=== PATIENT | female | born 1980 | race Caucasian/White ===

== ENCOUNTER 2019-06-21 19:02 | Observation (INO) | payer OTHER ==
[~2019-06-21] VITALS: Ht 167.6 cm; Wt 111.1 kg
--- OUTSIDE RECORDS SUMMARY | 2019-06-21 19:03 | XMS REPORT | Clinical Summary ---
Author Author Rojas [facility] Organization [facility] Address Unknown Phone Unavailable Care Team Providers Care Registered Public Surveyor Name Role Phone Carmen Nascimento MD PCP Allergies Not on File Medications Not on file Active Problems Not on file Social History Date Tobacco Use Types Packs/Day Years Used Never Assessed Sex Assigned at Date Recorded Not on file Industry Job Start Date Occupation Not on file Not on file Not on file Travel End Travel History Travel Start No recent travel history available. Last Filed Vital Signs Not on file Plan of Treatment Health Maintenance Due Date Last Done Comments CERVICAL CANCER SCREENING 2002 INFLUENZA VACCINE 05/27/2019 08/30/2015 Results Not on fileafter 06/20/2018 Insurance Type Payer Benefit Subscriber ID Effective Phone Address Plan / Dates Group HMO/PPO [facility] xxxxxxxxx 2016-P THCARE resent CHOICE/CHO ICE +
--- OUTSIDE RECORDS SUMMARY | 2019-06-21 19:03 | XMS REPORT | Summary of Care ---
Author Author Shlomo De Anda M.A. Organization Unknown Address [facility] Phone Unavailable Care Team Providers Care Lpc Name Role Phone VIBHA Bell, LANDON Unavailable Unavailable Shlomo De Anda M.A. Unavailable Unavailable BRY Bell, MARY Unavailable Unavailable JOSE Land, JOSE JUAN Unavailable Unavailable ROYCE Bell, SON Unavailable Unavailable VIDAL Bell, VERITO Unavailable Unavailable VIBHA SUTTON SD, LANDON Narvaez Unavailable Unavailable Unavailable Unavailable Functional Status Name Dates Details Functional status health issues are not documented Status: Name Dates Details Cognitive status health issues are not documented Status: Problems Name Dates Details Psoriasis (696.1, L40.9) Status: Active Hypoglycemia (251.2, E16.2) Status: Active Abnormal blood chemistry (790.6, R79.9) Status: Active Sciatica of left side (724.3, M54.32) Status: Active Left hip pain (719.45, M25.552) Status: Active FPC use of drug (V58.69, Z79.899) Status: Active Acute recurrent sinusitis (461.9, J01.91) Status: Active Menorrhagia with irregular cycle (626.2, N92.1) Status: Active Left lower quadrant abdominal tenderness (789.64, R10.814) Status: Active Back pain (724.5, M54.9) Status: Active Rhinitis (472.0, J31.0) Status: Active Muscle spasm (728.85, M62.838) Status: Active Stress headaches (307.81, F45.41) Status: Active Obesity (278.00, E66.9) Status: Active Malaise and fatigue (780.79, R53.81) Status: Active Fever (780.60, R50.9) Status: Active Influenza (487.1, J11.1) Status: Active Headache (784.0, R51) Status: Active Allergic rhinitis, seasonal (477.9, J30.2) Status: Active Acute non-recurrent sinusitis of other sinus (461.8, J01.80) Status: Active Migraine, unspecified, not intractable, without status migrainosus (346.90, G43.909) Status: Active Headache, tension-type (339.10, G44.209) Status: Active Medications Name Dates Details Clobetasol Propionate 0.05 % External Liquid APPLY AND RUB IN A THIN FILM TO AFFECTED AREAS TWICE DAILY.(AM AND PM). Quantity: 1 LANDON DUNNE M.D. * Start : 29-Sep-2015 Active 125 ML Bottle Meloxicam 7.5 MG Oral Tablet TAKE ONE TABLET ONCE A DAY NEEDED FOR PAIN * Quantity: 30 Refills: 3 MARY LONDONO M.D. * Start : 29-May-2017 Active Fluticasone Propionate 50 MCG/ACT Nasal Suspension USE 1 TO 2 SPRAYS IN EACH NOSTRIL ONCE DAILY. * Quantity: 1 Refills: 0 VERITO DRAKE M.D. * Start : 21-Aug-2017 Active 9.9 ML Bottle Iron TABS * Refills: 0 Active One-A-Day Womens TABS * Refills: 0 Active Amoxicillin-Pot Clavulanate 500-125 MG Oral Tablet TAKE 1 TABLET EVERY 12 HOURS DAILY. * Quantity: 20 Refills: 0 JOSE JUAN GARCIA N.P. * Start : 29-Dec-2017 Active Levocetirizine Dihydrochloride 5 MG Oral Tablet TAKE 1 TABLET DAILY NEEDED FOR FOR SINUS ALLERGIES, SNEEZING & DRAINAGE * Quantity: 30 Refills: 0 JOSE JUAN GARCIA N.P. * Start : 29-Dec-2017 End : 28-Jan-2018 Active Topiramate 25 MG Oral Tablet Take one tablet daily * Quantity: 30 Refills: 1 SON CRANE M.D. * Start : 31-Dec-2017 Active Nortriptyline HCl - 10 MG Oral Capsule take one at bedtime * Quantity: 30 Refills: 1 SON CRANE M.D. * Start : 31-Dec-2017 Active Wyxmisbdsb-FOQB-Hyuevrhe 50-325-40 MG Oral Capsule Take one tablet up to evvery 4 hours as needed for headache * Quantity: 20 Refills: 0 SON CRANE M.D. * Start : 31-Dec-2017 Active Allergies and Adverse Reactions Name Dates Details No Known Drug Allergies (Allergy) Status: Active Past Medical History Name Dates Details History of iron deficiency anemia (V12.3, Z86.2) Status: Resolved History of Morbid obesity (278.01, E66.01) Status: Resolved History of polycystic ovarian syndrome (V13.29, Z87.42) Status: Resolved Procedures Procedure Dates Details History of Gastric Surgery For Morbid Obesity Laparoscopic Longitudinal Gastrectomy Completed History of Cholecystectomy Completed History of Appendectomy Completed Immunization Name Dates Details Fluzone Quadrivalent 0.5 ML Intramuscular Suspension Lot #: [id number] on: 30-Aug-2015 Family History Name Dates Details Family history of hypertension (V17.49, Z82.49) Status: Active Family history of diabetes mellitus (V18.0, Z83.3) Status: Active Name Dates Details Family history of diabetes mellitus (V18.0, Z83.3) Status: Active Name Dates Details Family history of hyperthyroidism (V18.19, Z83.49) Status: Active Name Dates Details Family history of colonic polyps (V18.51, Z83.71) Status: Active Family history of hyperlipidemia (V18.19, Z83.49) Status: Active Family history of sleep apnea (V19.8, Z82.0) Status: Active Family history of hypertension (V17.49, Z82.49) Status: Active Family history of hypothyroidism (V18.19, Z83.49) Status: Active Social History Name Dates Details - Status: Name Dates Details Former smoker Vital Signs Date Test Result Details 31-Dec-20178:43 BP Systolic 116 mm[Hg] Status: Comments: Location: LUE; Position: Sitting BP Diastolic 82 mm[Hg] Status: Comments: Location: LUE; Position: Sitting Weight 235 lb Status: Body Mass Index Calculated 37.93 kg/m2 Status: Body Surface Area Calculated 2.14 m2 Status: Height 66 in Status: Temperature 97.9 f Status: Comments: Method: Temporal Respiration Rate 16 /min Status: Heart Rate 60 /min Status: 4-Gei-599754:04 BP Systolic 119 mm[Hg] Status: Comments: Location: LUE; Position: Sitting BP Diastolic 78 mm[Hg] Status: Comments: Location: LUE; Position: Sitting Weight 237.5 lb Status: Body Mass Index Calculated 38.33 kg/m2 Status: Body Surface Area Calculated 2.15 m2 Status: Height 66 in Status: Temperature 98 f Status: Comments: Method: Temporal Respiration Rate 16 /min Status: Heart Rate 62 /min Status: Comments: Location: Brachial Artery; 12-Axg-091988:10 BP Systolic 110 mm[Hg] Status: Comments: Location: LUE; Position: Sitting BP Diastolic 62 mm[Hg] Status: Comments: Location: E; Position: Sitting Weight 236.1875 lb Status: Body Mass Index Calculated 38.12 kg/m2 Status: Body Surface Area Calculated 2.15 m2 Status: Height 66 in Status: Temperature 97.9 f Status: Comments: Method: Temporal Respiration Rate 17 /min Status: Heart Rate 67 /min Status: Results Date Description Value Details 58-Hzg-462938:53 [O] Flu Test (in Office ) Flu A Negative (Normal) Flu B Negative (Normal) Plan of Care Name Dates Details Planned Observations Planned Goals not documented Instructions Name Dates Details Instructions not documented Encounters Appointment; LANDON DUNNE M.D. Encounter Diagnosis: Problem not documented On: 10-Jul-2016 16:00 Appointment; LANDON DUNNE M.D. Encounter Diagnosis: Problem not documented On: 23-Oct-2016 9:00 Appointment; LANDON DUNNE M.D. Encounter Diagnosis: Problem not documented On: 14-Jan-2017 10:30 Appointment; LANDON DUNNE M.D. Encounter Diagnosis: Problem not documented On: 23-Apr-2017 13:00 Appointment; MARY LONDONO M.D. Encounter Diagnosis: Problem not documented On: 29-May-2017 14:15 Appointment; VERITO DRAKE M.D. Encounter Diagnosis: Problem not documented On: 21-Aug-2017 9:45 Appointment; SON CRANE M.D. Encounter Diagnosis: Problem not documented On: 04-Nov-2017 15:30 Appointment; ROSEANN DAILY M.D. Encounter Diagnosis: Problem not documented On: 16-Dec-2017 11:30 Appointment; JOSE JUAN GARCIA NP Encounter Diagnosis: Problem not documented On: 29-Dec-2017 14:00 Appointment; SON CRANE M.D. Encounter Diagnosis: Problem not documented On: 31-Dec-2017 8:30
[2019-06-21] MEDS ORDERED: ASPIRIN 81 MG CHEW TAB PO STA (19:14)
--- NOTE | 2019-06-21 20:03 | Diagnostic Imaging Report ---
EXAMINATION: CXR 2 VIEW - HOPD INDICATION: Chest pain and left arm weakness ^[id number] ^[id number] COMPARISON: None FINDINGS: PA and lateral views TUBES and LINES: None. LUNGS: Lungs are well inflated. There is no evidence of pneumonia or pulmonary edema. PLEURA: No pleural effusion or pneumothorax. HEART AND MEDIASTINUM: The cardiomediastinal silhouette is unremarkable.. BONES AND SOFT TISSUES: No focal osseous lesions. Soft tissues are unremarkable. UPPER ABDOMEN: No free air under the diaphragm. Cholecystectomy clips in the right upper quadrant. IMPRESSION: No acute thoracic abnormality. Signed by: Dr. Yayo Black MD on 06/21/2019 8:00 PM
[2019-06-21] MEDS ORDERED: ONDANSETRON HCL INJ 2MG/ML 2ML 2 MG/ML VIAL IV PRN (20:15)
[2019-06-21] MEDS ORDERED: NITROGLYCERIN 0.4 MG SUBL SL PRN (20:15)
[2019-06-21] MEDS ORDERED: ASPIRIN 81 MG CHEW TAB PO ONE (20:15)
[2019-06-21] MEDS ORDERED: SODIUM CHLORIDE FLUSH 10 ML SYR INJ PRN (20:15)
--- OUTSIDE RECORDS SUMMARY | 2019-06-21 20:29 | XMS REPORT | Clinical Summary ---
Author Author Rojas [facility] Organization [facility] Address Unknown Phone Unavailable Care Team Providers Care Permastone Installer Name Role Phone Carmen Nascimento MD PCP [...] Phone Address Plan / Dates Group HMO/PPO [facility] xxxxxxxxx 2016-P THCARE resent CHOICE/CHO ICE +
--- OUTSIDE RECORDS SUMMARY | 2019-06-21 20:29 | XMS REPORT ---
[email or web address] Address Unknown Phone Unavailable Care Team Providers Care Esl Professor Name Role Phone WAYNE ARAUZ Unavailable Unavailable Problems This patient has no known problems. Allergies, Adverse Reactions, Alerts This patient has no known allergies or adverse reactions. Medications This patient has no known medications. Results Test Description Test Time Test Comments Text Results Atomic Results Result Comments [facility] 2019-06-21 19:59:00 [place] [address] Patient Name: ANDIE REBOLLEDO MR #: [id number] : 1980 Age/Sex: 38/F Req #: [id number] Adm Physician: Ordered by: WAYNE ARAUZ MD Report #: [id number] Location: [facility] Room/Bed: Procedure: [id number] HOPD/CXR 2 VIEW - HOPD Exam Date: 06/21/19 Exam Time: 1939 REPORT STATUS: Signed EXAMINATION: CXR 2 VIEW - HOPD INDICATION: Chest pain and left arm weakness [id number] COMPARISON: None FINDINGS: PA and lateral views TUBES and LINES: None. LUNGS: Lungs are well inflated. There is no evidence of pneumonia or pulmonary edema. PLEURA: No pleural effusion or pneumothorax. HEART AND MEDIASTINUM: The cardiomediastinal silhouette is unremarkable.. BONES AND SOFT TISSUES: No focal osseous lesions. Soft tissues are unremarkable. UPPER ABDOMEN: No free air under the diaphragm. Cholecystectomy clips in the right upper quadrant. IMPRESSION: No acute thoracic abnormality. Signed by: Dr. Owen Black MD on 06/21/2019 8:00 PM Dictated By: OWEN BLACK MD 99 Transcribed By: BRIGHT on 06/21/191999 COPY TO: WAYNE ARAUZ MD
[2019-06-21 21:30] VITALS: BP 103/57
--- NOTE | 2019-06-21 21:30 | NUR ---
PATIENT IS A NEW ADMIT THAT ARRIVED STRETCHER. PATIENT IS AWAKE AND TALKING. PATIENT HAS BEEN TRANSFERRED INTO THE BED, BED IS IN LOWEST POSITION AND CALL LIGHT IS WITHIN REACH. WILL CONTINUE TO MONITOR PATIENT.
[2019-06-21 21:55] VITALS: BP 103/57
[2019-06-21] MEDS: FAMOTIDINE 20 MG TAB PO SCH (22:01)
[2019-06-21 22:55] LABS: CREATINE KINASE MB 1.4 ng/mL (0-5.0)
[2019-06-22] VITALS: BP 102/53
[2019-06-22 04:00] VITALS: BP 95/59
[2019-06-22] MEDS ORDERED: ASPIRIN EC81 MG PO (05:25)
[2019-06-22] MEDS ORDERED: FAMOTIDINE20 MG PO (05:25)
[2019-06-22 05:52] LABS: CREATINE KINASE MB 1.9 ng/mL (0-5.0)
[2019-06-22 06:17] LABS: BASOPHILS % 0.5 % (0.0-1.0); EOSINOPHILS # (AUTO) 0.2 (0.0-0.4); EOSINOPHILS % 2.7 % (0.0-6.0); HEMATOCRIT 41.8 % (34.2-44.1); HEMOGLOBIN 13.7 g/dL (12.0-16.0); LYMPHOCYTES # (AUTO) 2.9 (1.0-3.2); LYMPHOCYTES % 35.7 % (18.0-39.1); MEAN CORPUSCULAR HEMOGLOBIN 28.5 pg (28-32); MEAN CORPUSCULAR HGB CONC 32.8 g/dL (31-35); MEAN CORPUSCULAR VOLUME 86.9 fL (81-99); MONOCYTES % 12.1 % (4.4-11.3); NEUTROPHILS # (AUTO) 3.9 (2.1-6.9); NEUTROPHILS % 48.9 % (38.7-80.0); PLATELET COUNT 310 x10e3/uL (140-360); RED BLOOD COUNT 4.81 x10e6/uL (3.6-5.1); RED CELL DISTRIBUTION WIDTH 18.3 % (11.7-14.4)
[2019-06-22 06:31] LABS: ANION GAP 13.4 mmol/L (8-16); BLOOD UREA NITROGEN 10 mg/dL (7-26); BUN/CREATININE RATIO 12 (6-25); CALCIUM 9.9 mg/dL (8.4-10.2); CARBON DIOXIDE 28 mmol/L (22-29); CHLORIDE 101 mmol/L (98-107); CREATININE, SERUM 0.83 mg/dL (0.57-1.11); EST GLOMERULAR FILTRATION RATE > 60 ML/MIN (60-); GLUCOSE 87 mg/dL (74-118); POTASSIUM 4.4 mmol/L (3.5-5.1); SODIUM 138 mmol/L (136-145)
--- NOTE | 2019-06-22 06:37 | NUR ---
report given to day nurse. patient is resting comfortably in bed. bed is in lowest position and call solorzano is within reach.
[2019-06-22 06:53] LABS: FREE T4 (FREE THYROXINE) 0.87 ng/dL (0.8-1.8); THYROID STIMULATING HORMONE 1.961 uIU/mL (0.350-4.940)
[2019-06-22 06:56] LABS: B-TYPE NATRIURETIC PEPTIDE2 17.3 pg/mL (0-100)
--- NOTE | 2019-06-22 07:06 | NUR ---
pt alert resp even and unlabored this time no distress noted, pt has no c/o pain at this time, call light in reach.
[2019-06-22] MEDS ORDERED: FAMOTIDINE 20 MG TAB PO SCH (07:30)
[2019-06-22 08:10] VITALS: BP 116/71
[2019-06-22] MEDS: FAMOTIDINE 20 MG TAB PO SCH (08:32)
[2019-06-22 08:42] VITALS: BP 116/71
[2019-06-22] MEDS ORDERED: ASPIRIN 81 MG CHEW TAB PO SCH (09:00)
[2019-06-22] MEDS ORDERED: ASPIRIN 81 MG ENTERIC COATED PO SCH (09:00)
--- NOTE | 2019-06-22 09:02 | NUR ---
PT HAVING ECHO AT THIS TIME. TOLERATING WELL.
--- NOTE | 2019-06-22 10:29 | NUR ---
PT DISCHARGED HOME, PRESCRIPTIONS GIVEN , PT AND WAS EDUCATED ON HER MEDICATION AT THIS TIME. IV SITE REMOVED NO REDNESS NO BLEEDING NOR SWELLING TO SITE.
--- NOTE | 2019-06-23 21:02 | Discharge Summary ---
ADMISSION DIAGNOSES: 1. Chest pain. 2. Obesity. DISCHARGE DIAGNOSES: 1. Chest pain. 2. Obesity. 3. Rule out myocardial infarction. HISTORY: None. SURGICAL HISTORY: Cholecystectomy and appendectomy. FAMILY HISTORY: The patient's uncle had diabetes. Her aunt had cancer. Her grandpa had a stroke. SOCIAL HISTORY: Noncontributory. HOSPITAL COURSE: A 38-year-old female complains of substernal chest pain and pressure that began yesterday while sitting on the couch. The pain radiated to her left arm with associated numbness and tingling. She denied shortness of breath, dizziness, and diaphoresis. On admission, EKG showed normal sinus rhythm. Echo showed an EF of 50% to 55%. Chest x-ray was negative. Troponins were negative x3. The patient was discharged home with new prescriptions for Pepcid and aspirin. She will follow up with primary care in 1 to 2 weeks. The patient understands discharge instructions and agrees to plan. Vital signs stable. The patient is afebrile. Dictated by Maria Del Carmen Alvarez NP MD BRIANA Sanders/KEY /[id number]
== END 2019-06-22 10:23 | disposition home or self-care (01) ==
LOC: FSED 19:02 → ERHOLD 20:12 → MED/SURG 21:26
PROVIDERS: ADMIT Internal Medicine; ATTEND Internal Medicine
DX: R07.2 Precordial pain (principal); D64.9 Anemia, unspecified; E66.9 Obesity, unspecified; Z68.39 Body mass index [BMI] 39.0-39.9, adult; Z88.5 Allergy status to narcotic agent; Z83.3 Family history of diabetes mellitus; Z80.9 Family history of malignant neoplasm, unspecified; Z82.3 Family history of stroke; Z90.49 Acquired absence of other specified parts of digestive tract
CPT/HCPCS: 36415; 71046; 80048; 80061; 80076; 80307; 81025; 82550; 82553; 83036; 83735; 83880; 84439; 84443; 84484; 85025; 85379; 93005; 93306; 99284; G0378; J2405

== ENCOUNTER 2020-09-29 12:14 | Emergency (ER) | payer OTHER ==
[~2020-09-29] VITALS: Ht 167.6 cm; Wt 98.1 kg
[~2020-09-29 12:14] MED LIST: ASPIRIN EC81 MG PO; FAMOTIDINE20 MG PO
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
[2020-09-29] MEDS ORDERED: IBUPROFEN 600 MG TAB PO ONE (13:07)
--- NOTE | 2020-09-29 13:44 | Diagnostic Imaging Report ---
X-ray left wrist 3 views History: Trauma Findings: No fracture, subluxation, significant soft tissue swelling, radiopaque foreign body. Impression: As above. Signed by: Kvng Barbosa MD on 09/29/2020 1:41 PM
--- OUTSIDE RECORDS SUMMARY | 2020-09-29 13:44 | XMS REPORT | Continuity of Care Document ---
Author Author [facility] t Organization [facility] Address [address] [place] [address] Phone Unavailable Care Team Providers Care Scrap Shear Operator Name Role Phone Brice DUNNE MD PCP LANDON DUNNE M.D. Attphys Unavailable WAYNE ARAUZ Attphys Unavailable NAYELY HERNANDEZ APRN Attphys Unavailable SON CRANE M.D. Attphys Unavailable JOSE JUAN GARCIA NP Attphys Unavailable ROSEANN DAILY M.D. Attphys Unavailable VERITO DRAKE M.D. Attphys Unavailable MARY LONDONO M.D. Attphys Unavailable AD THOMAS M.D. Attphys Unavailable Payers Payer Name Policy Type Policy Number Effective Date Expiration Date S ource Problems Condition Name Condition Details Condition Category Status Onset Date Resolution Date Last Treatment Date Treating Clinician Comments Source Chest pain Chest pain Problem Active [facility] History of iron deficiency anemia History of iron deficiency ane august Problem Resolved [facility] History of Morbid obesity History of Morbid obesity Problem Resolved [facility] History of polycystic ovarian syndrome History of polycystic ovarian syndrome Problem Resolved [facility] Psoriasis Psoriasis Problem Active [facility] Hypoglycemia Hypoglycemia Problem Active [facility] Abnormal blood chemistry Abnormal blood chemistry Problem Active [facility] Sciatica of left side Sciatica of left side Problem Active [facility] Left hip pain Left hip pain Problem Active [facility] 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 Problem Active [facility] Menorrhagia with irregular cycle Menorrhagia with irregular cycl e Problem Active [facility] Left lower quadrant abdominal tenderness Left lower qu adrant abdominal tenderness Problem Active [facility] Back pain Back pain [facility] Rhinitis Rhinitis Problem Active [facility] Muscle spasm Muscle spasm Problem Active [facility] Obesity Obesity Problem Active [facility] Headache, tension-type Headache, tension-type Problem Active [facility] Persistent cough Persistent cough Problem Active [facility] Fever, unspecified fever cause Fever, unspecified fever cause Problem Active [facility] Acute bronchitis Acute bronchitis Problem Active [facility] Stress headaches Stress headaches Problem Active [facility] Anxiety and depression Anxiety and depression Problem Active [facility] Fatigue Fatigue Problem Active [facility] Allergic rhinitis, seasonal Allergic rhinitis, seasonal Problem Active [facility] Pruritus Pruritus Problem Active [facility] Migraine, unspecified, not intractable, without status migrainosus Migraine, unspecified, not intractable, without status migrainosus Problem Active [facility] Headache Headache Problem Active [facility] Panic attacks Panic attacks Problem Active [facility] Allergies, Adverse Reactions, Alerts Allergy Name Allergy Type Status Severity Reaction(s) Onset Date Inacti ve Date Treating Clinician Comments Source No Known Allergies DA Active U 2019-10-01 00:00:00 [facility] Codeine Allergy to Substance Active Moderate 2019-06-21 00:00:00 [facility] Family History Family Member Diagnosis Comments Start Date Stop Date Source Grandmother Family history of hypertension [facility] Grandmother Family history of diabetes mellitus [facility] uncle Family history of diabetes mellitus [facility] cousin Family history of hyperthyroidism [facility] Mother Family history of colonic polyps [facility] Mother Family history of hyperlipidemia [facility] Mother Family history of sleep apnea [facility] Mother Family history of hypertension [facility] Mother Family history of hypothyroidism [facility] Social History Social Habit Start Date Stop Date Quantity Comments Source Sex Assigned At [facility] Smoking Status Start Date Stop Date Source Ex-smoker (finding) [place] [facility] Medications Ordered Medication Name Filled Medication Name Start Date Stop Da te Current Medication? Ordering Clinician Indication Dosage Frequency Signature (SIG) Comments Components Source clonazePAM 0.5 MG Oral Tablet clonazePAM 0.5 MG Oral Tablet 2019 00:00:00 Yes LANDON DUNNE M.D. TAKE 1 TA BLET BY MOUTH TWICE DAILY NEEDED FOR PANIC [facility] buPROPion HCl ER (XL) 150 MG Oral Tablet Extended Rele ase 24 Hour buPROPion HCl ER (XL) 150 MG Oral Tablet Extended Release 24 Hour 2019-07-23 00:00:00 Yes LANDON DUNNE M.D. TAKE 1 TABLET BY MOUTH EVERY DAY [facility] Aspirin (Aspirin Ec) 81 Mg Tablet. Aspirin (Aspirin Ec) 81 Mg Tablet. 2019-06-22 00:00:00 Yes Maria Del Carmen Alvarez Np 81 Every M orning [facility] Famotidine 20 Mg Tab Famotidine 20 Mg Tab 2019-06-22 00:00:00 Yes Maria Del Carmen Alvarez Np 20 Daily@0600 [facility] Ketorolac Tromethamine 10 MG Oral Tablet Ketorolac Tro methamine 10 MG Oral Tablet 2019-04-30 00:00:00 Yes NAYELY HERNANDEZ APRN TAKE 1 TABLET BY MOUTH EVERY 6 HOURS FOR 3 DAYS. DO NOT EXCEED MORE THAN 5 DAYS OF CONSECUTIVE USE. [facility] Nxntnioddq-GYLD-Wspcqnml 50-325-40 MG Oral Capsule But hdgrlrq-PQTQ-Bdfgbmme 50-325-40 MG Oral Capsule 2017-12-31 00:00:00 Yes LANDON DUNNE M.D. Take one tablet up to evvery 4 hours as needed for headache [facility] Topamax 100 MG Oral Tablet Topamax 100 MG Oral Tablet 2017-12-31 00:0 0:00 Yes LANDON DUNNE M.D. qd [facility] One-A-Day Womens TABS One-A-Day Womens TABS Yes [facility] Immunizations Ordered Immunization Name Filled Immunization Name Date Status Comments Source Fluzone Quadrivalent 0.5 ML Intramuscular Suspension 2015-08-30 09:20:00 Completed [facility] ns Vital Signs Vital Name Observation Time Observation Value Comments Source Systolic blood pressure 2020-04-06 09:29:00 106 mm[Hg] Loca tion: ASHAE; Position: Sitting [facility] Diastolic blood pressure 2020-04-06 09:29:00 61 mm[Hg] Loc ation: LUE; Position: Sitting [facility] Body height 2020-04-06 09:29:00 66 [in_us] [facility] Weight 2020-04-06 09:29:00 237.375 [lb_av] [facility] Body mass index (BMI) [Ratio] 2020-04-06 09:29:00 38.31 kg/m2 [facility] Body temperature 2020-04-06 09:29:00 98.4 [degF] Method: Temporal [facility] Heart Rate 2020-04-06 09:29:00 71 /min [facility] Respiratory rate 2020-04-06 09:29:00 16 /min [facility] Systolic blood pressure 2020-03-06 12:54:00 112 mm[Hg] Loca tion: LUE; Position: Sitting [facility] Diastolic blood pressure 2020-03-06 12:54:00 77 mm[Hg] Loc ation: LUE; Position: Sitting [facility] Body height 2020-03-06 12:54:00 66 [in_us] [facility] Weight 2020-03-06 12:54:00 243.0625 [lb_av] [facility] Body mass index (BMI) [Ratio] 2020-03-06 12:54:00 39.23 kg/m2 [facility] Body temperature 2020-03-06 12:54:00 99 [degF] Method: Temporal [facility] Heart Rate 2020-03-06 12:54:00 66 /min [facility] Respiratory rate 2020-03-06 12:54:00 16 /min [facility] BP Systolic 2019-07-23 10:19:00 133 mm[Hg] Location: [place]; Positi on: Sitting [facility] BP Diastolic 2019-07-23 10:19:00 90 mm[Hg] Location: [place]; Pos[place] on: Sitting [facility] Height 2019-07-23 10:19:00 66 [in_us] [facility] Weight 2019-07-23 10:19:00 246 [lb_av] [facility] Body Mass Index Calculated 2019-07-23 10:19:00 39.71 kg/m2 [facility] Temperature 2019-07-23 10:19:00 97.2 [degF] Method: Temporal [facility] Respiration Rate 2019-07-23 10:19:00 16 /min [facility] Heart Rate 2019-07-23 10:19:00 70 /min [facility] BP Systolic 2019-06-23 14:18:00 106 mm[Hg] Location: LUE; Positi on: Sitting [facility] BP Diastolic 2019-06-23 14:18:00 66 mm[Hg] Location: LUE; Positi on: Sitting [facility] Height 2019-06-23 14:18:00 66 [in_us] [facility] Weight 2019-06-23 14:18:00 246 [lb_av] [facility] Body Mass Index Calculated 2019-06-23 14:18:00 39.71 kg/m2 [facility] Temperature 2019-06-23 14:18:00 98.3 [degF] Method: Temporal [facility] Respiration Rate 2019-06-23 14:18:00 16 /min [facility] Heart Rate 2019-06-23 14:18:00 81 /min [facility] BP Systolic 2019-04-30 15:36:00 126 mm[Hg] Location: LUE; Positi on: Sitting [facility] BP Diastolic 2019-04-30 15:36:00 66 mm[Hg] Location: LUE; Positi on: Sitting [facility] Height 2019-04-30 15:36:00 66 [in_us] [facility] Weight 2019-04-30 15:36:00 243 [lb_av] [facility] Body Mass Index Calculated 2019-04-30 15:36:00 39.22 kg/m2 [facility] Temperature 2019-04-30 15:36:00 97.2 [degF] Method: Temporal [facility] Heart Rate 2019-04-30 15:36:00 71 /min Location: L Radial; [facility] Respiration Rate 2019-04-30 15:36:00 16 /min Quality: Normal [facility] BP Systolic 2018-07-09 10:14:00 131 mm[Hg] Location: LUE; Positi on: Sitting [facility] BP Diastolic 2018-07-09 10:14:00 83 mm[Hg] Location: LUE; Positi on: Sitting [facility] Height 2018-07-09 10:14:00 66 [in_us] [facility] Weight 2018-07-09 10:14:00 247.25 [lb_av] [facility] Body Mass Index Calculated 2018-07-09 10:14:00 39.91 kg/m2 [facility] Temperature 2018-07-09 10:14:00 97.9 [degF] Method: Temporal [facility] Heart Rate 2018-07-09 10:14:00 86 /min [facility] Respiration Rate 2018-07-09 10:14:00 16 /min [facility] BP Systolic 2017-12-31 08:43:00 116 mm[Hg] Location: LUE; Positi on: Sitting [facility] BP Diastolic 2017-12-31 08:43:00 82 mm[Hg] Location: LUE; Positi on: Sitting [facility] Weight 2017-12-31 08:43:00 235 [lb_av] [facility] Body Mass Index Calculated 2017-12-31 08:43:00 37.93 kg/m2 [facility] Height 2017-12-31 08:43:00 66 [in_us] [facility] Temperature 2017-12-31 08:43:00 97.9 [degF] Method: Temporal [facility] Respiration Rate 2017-12-31 08:43:00 16 /min [facility] Heart Rate 2017-12-31 08:43:00 60 /min [facility] BP Systolic 2017-12-29 14:04:00 119 mm[Hg] Location: LUE; Positi on: Sitting [facility] BP Diastolic 2017-12-29 14:04:00 78 mm[Hg] Location: LUE; Positi on: Sitting [facility] Height 2017-12-29 14:04:00 66 [in_us] [facility] Weight 2017-12-29 14:04:00 237.5 [lb_av] [facility] Body Mass Index Calculated 2017-12-29 14:04:00 38.33 kg/m2 [facility] Temperature 2017-12-29 14:04:00 98 [degF] Method: Temporal [facility] Heart Rate 2017-12-29 14:04:00 62 /min Location: L Brachial Artery; [facility] Respiration Rate 2017-12-29 14:04:00 16 /min [facility] BP Systolic 2017-12-16 12:10:00 110 mm[Hg] Location: LUE; Positi on: Sitting [facility] BP Diastolic 2017-12-16 12:10:00 62 mm[Hg] Location: LUE; Positi on: Sitting [facility] Height 2017-12-16 12:10:00 66 [in_us] [facility] Weight 2017-12-16 12:10:00 236.1875 [lb_av] [facility] Body Mass Index Calculated 2017-12-16 12:10:00 38.12 kg/m2 [facility] Temperature 2017-12-16 12:10:00 97.9 [degF] Method: Temporal [facility] Heart Rate 2017-12-16 12:10:00 67 /min [facility] Respiration Rate 2017-12-16 12:10:00 17 /min [facility] BP Systolic 2017-11-04 15:26:00 105 mm[Hg] Location: LUE; Positi on: Sitting [facility] BP Diastolic 2017-11-04 15:26:00 59 mm[Hg] Location: ASHAE; Positi on: Sitting [facility] Height 2017-11-04 15:26:00 66 [in_us] [facility] Weight 2017-11-04 15:26:00 240 [lb_av] [facility] Body Mass Index Calculated 2017-11-04 15:26:00 38.74 kg/m2 [facility] Temperature 2017-11-04 15:26:00 98.3 [degF] Method: Temporal [facility] Respiration Rate 2017-11-04 15:26:00 16 /min [facility] Heart Rate 2017-11-04 15:26:00 67 /min [facility] Procedures Procedure Date / Time Performed Performing Clinician Sourc e XRAY Chest 2 views [id number] 2019-04-30 00:00:00 [facility] [O] Flu Test (in Office ) 2017-12-16 00:00:00 [facility]] CBC (INCLUDES DIFF/PLT) 2017-11-04 00:00:00 [facility] [[facility]] CMP W/EGFR 2017-11-04 00:00:00 [facility] [[facility]] LIPID PANEL 2017-11-04 00:00:00 [facility] History of Gastric Surgery For Morbid Ob esity Laparoscopic Longitudinal Gastrectomy [facility] History of Cholecystectomy [facility] History of Appendectomy [facility] Plan of Care Planned Activity Planned Date Details Comments Source Future Scheduled Test 2020-05-27 00:00:00 INFLUENZA VACCINE [code = INFLUENZA VACCINE] Bob Roseist Future Scheduled Test 2002 00:00:00 Screening for bryan gnant neoplasm of cervix (procedure) [code = 337164561] [facility] En[facility]ters Start Date/Time End Date/Time Encounter Type Admission Type Attendi [facility] Care Department Encounter ID Source 2020-04-06 09:30:00 2020-04-06 09:30:00 Appointment; LANDON DUNNE M .D. BAI, KRISTY, M.D. [facility], [address] [id number] [facility] 2020-03-06 12:30:00 2020-03-06 12:30:00 Appointment; LANDON DUNNE M .D. BAI, KRISTY, M.D. [facility] [id number] [facility] 2019-09-03 09:45:00 2019-09-03 09:45:00 Appointment; LANDON DUNNE M .D. BAI, KRISTY, M.D. [facility] [id number] [facility] 2019-07-23 10:15:00 2019-07-23 10:15:00 Appointment; LANDON DUNNE M .D. BAI, KRISTY, M.D. [facility], [address] [id number] [facility] 2019-06-23 14:15:00 2019-06-23 14:15:00 Appointment; LANDON DUNNE M .D. BAI, KRISTY, M.D. [facility], [address] [id number] [facility] 2019-06-21 20:12:00 2019-06-22 10:23:00 Discharged Inpatient (obs) [address] [facility] [id number] [facility] 2019-04-30 15:30:00 2019-04-30 15:30:00 Appointment; NAYELY HERNANDEZ APRN DUGAS, NANCY, APRN [facility], [address] [id number] [facility] 2018-07-09 09:45:00 2018-07-09 09:45:00 Appointment; LANDON DUNNE M .D. BAI, KRISTY, M.D. [facility] [address] [id number] [facility] 2017-12-31 08:30:00 2017-12-31 08:30:00 Appointment; NEYMAR CRANE M.D. WILLISTON, HUBERT, M.D. [facility] [id number] [facility] 2017-12-29 14:00:00 2017-12-29 14:00:00 Appointment; JOSE JUAN GARCIA N P BECK, SHERI, NP [facility] [address] [id number] [facility] 2017-12-16 11:30:00 2017-12-16 11:30:00 Appointment; MICHAEL DAILY M.D. PERKISON, WILLIAM, M.D. [facility] [id number] [facility] 2017-11-04 15:30:00 2017-11-04 15:30:00 Appointment; NEYMAR CRANE M.D. WILLISTON, HUBERT, M.D. [facility] [id number] [facility] 2017-08-21 09:45:00 2017-08-21 09:45:00 Appointment; VERITO DRAKE M.D. VAZQUEZ, NOEMI, M.D. [facility] [id number] [facility] 2017-05-29 14:15:00 2017-05-29 14:15:00 Appointment; MARY LONDONO M.D. HUANG, EDDIE, M.D. [facility] UTP [id number] [facility] 2017-04-23 13:00:00 2017-04-23 13:00:00 Appointment; LANDON DUNNE M .D. BAI, KRISTY, M.D. [facility]TP [id number] [facility] 2017-01-14 10:30:00 2017-01-14 10:30:00 Appointment; LANDON DUNNE M .D. BAI, KRISTY, M.D. [facility]TP [id number] [facility] 2016-10-23 09:00:00 2016-10-23 09:00:00 Appointment; LANDON DUNNE M .D. BAI, KRISTY, M.D. [facility] UTP [id number] [facility] 2016-07-10 16:00:00 2016-07-10 16:00:00 Appointment; LANDON DUNNE M .D. BAI, KRISTY, M.D. [facility] UTP [id number] [facility] 2015-12-26 14:30:00 2015-12-26 14:30:00 Appointment; AD THOMAS M.D. NASSIF, JULIA, M.D. [facility] UTP [id number] [facility] 2015-12-11 14:15:00 2015-12-11 14:15:00 Appointment; LANDON DUNNE M .D. BAI, KRISTY, M.D. [facility]TP [id number] [facility] Results Test Description Test Time Test Comments Results Result Comments Source UR HCG QUAL 2019-10-01 14:25:00 Test Item UR HCG QUAL (test code = HCGQLU) NEGATIVE NEGATIVE CBC W/AUTO [id number] 14:24:00* Test Item Value Reference Range Interpretation Comments WHITE BLOOD CELL (test code = WBC) 6.9 x10 3/uL 4.8-10.8 N RED BLOOD CELL (test code = RBC) 4.46 x10 6/uL 4.20-5.40 N HEMOGLOBIN (test code = HGB) 12.9 g/dL 14.5-20 L HEMATOCRIT (test code = HCT) 40.5 % 37.0-47.0 N MEAN CELL VOLUME (test code = MCV) 90.8 fL 81.0-99.0 N MEAN CELL HGB (test code = MCH) 28.9 pg 27-31 N MEAN CELL HGB CONCENTRATION (test code = MCHC) 31.9 G/DL 33-36.5 L RED CELL DISTRIBUTION WIDTH (test code = RDW) 12.7 % 12.9-16. 9 L PLATELET COUNT (test code = PLT) 325 150-440 N MEAN PLATELET VOLUME (test code = MPV) 11.9 fL 8.9-12.4 N NEUTROPHIL % (test code = NT%) 57.1 % 42.2-75.2 N LYMPHOCYTE % (test code = LY%) 29.7 % 20.5-51.1 N MONOCYTE % (test code = MO%) 9.7 % 1.7-9.3 H EOSINOPHIL % (test code = EO%) 2.7 % 0.0-7.0 N BASOPHIL % (test code = BA%) 0.7 % 0-2.5 N NEUTROPHIL # (test code = NT#) 3.94 x10 3/uL 1.80-7.70 N LYMPHOCYTE # (test code = LY#) 2.05 x10 3/uL 1.00-4.80 N MONOCYTE # (test code = MO#) 0.67 x10 3/uL 0.00-0.80 N EOSINOPHIL # (test code = EO#) 0.19 x10 3/uL 0.00-0.45 N BASOPHIL # (test code = BA#) 0.05 x10 3/uL 0.0-0.20 N B-Type Natriuretic [id number] 06:57:00* Test Item Value Reference Range Interpretation Comments B-Type Natriuretic Peptide (test code = 59105-3) 17.3 0-100 [facility] [id number] 06:54:00* Test Item Value Reference Range Interpretation Comments Free Thyroxine (test code = 3024-7) 0.87 0.8-1.8 [facility] Center[facility] Stim[facility] Hormone (TSH) 2019-06-22 06:54:00* Test Item Value Reference Range Interpretation Comments Thyroid Stimulating Hormone (TSH) (test code = 32833-4) 1.961 0.350-4.940 [facility] [id number] 06:33:00* Test Item Value Reference Range Interpretation Comments Sodium Level (test code = 2951-2) 138 136-145 [facility] [id number] 06:33:00* Test Item Value Reference Range Interpretation Comments Potassium Level (test code = 2823-3) 4.4 3.5-5.1 [facility] CenterChloride [id number] 06:33:00* Test Item Value Reference Range Interpretation Comments Chloride Level (test code = 2075-0) 101 98-107 [facility] CenterCarbon Dioxide [id number] 06:33:00* Test Item Value Reference Range Interpretation Comments Carbon Dioxide Level (test code = 2028-9) 28 22-29 [facility] CenterAnion [id number] 06:33:00* Test Item Value Reference Range Interpretation Comments Anion Gap (test code = 56745-2) 13.4 8-16 [facility] Center[facility] Urea [id number] 06:33:00* Test Item Value Reference Range Interpretation Comments Blood Urea Nitrogen (test code = 3094-0) 10 7-26 [facility] CenterCreatinine2019-08-27 06:33:00* Test Item Value Reference Range Interpretation Comments Creatinine (test code = 2160-0) 0.83 0.57-1.11 [facility] CenterBUN/Creatinine [id number] 06:33:00* Test Item Value Reference Range Interpretation Comments BUN/Creatinine Ratio (test code = 3097-3) 12 6-25 [facility] CenterEstimat Glomerular Filtration Rate 2019-06-22 06:33:00* Test Item Value Reference Range Interpretation Comments Estimat Glomerular Filtration Rate (test code = 100922049) > 60 >60 Ranges were taken from the National Kidney Disease Education Program and the [facility] Foundation literature.Reference ranges:60 or greater: Svdaum35-92 ( for 3 consecutive months): Chronic kidney disease 15 or less: Kidney failurePeterson Regional Medical CenterGlucose [id number] 06:33:00* Test Item Value Reference Range Interpretation Comments Glucose Level (test code = SKX3725) 87 74-118 [facility] CenterCalcium [id number] 06:33:00* Test Item Value Reference Range Interpretation Comments Calcium Level (test code = 55615-3) 9.9 8.4-10.2 [facility] CenterHemoglobin A1c Hifikme0726-36-64 06:33:00 * Test Item Value Reference Range Interpretation Comments Hemoglobin A1c Percent (test code = Hemoglobin A1c Percent) 4.9 4.0-7.0 [facility] CenterMagnesium Gdtpc4468-33-72 06:33:00* Test Item Value Reference Range Interpretation Comments Magnesium Level (test code = 63038-4) 2.0 1.3-2.1 [facility] CenterWhite Blood Ocvch4673-00-19 06:17:00* Test Item Value Reference Range Interpretation Comments White Blood Count (test code = 6690-2) 8.02 4.8-10.8 [facility] CenterRed Blood Fuhja8811-74-08 06:17:00* Test Item Value Reference Range Interpretation Comments Red Blood Count (test code = 789-8) 4.81 3.6-5.1 [facility] CenterHemoglobin2019-08-27 06:17:00* Test Item Value Reference Range Interpretation Comments Hemoglobin (test code = 05207-8) 13.7 12.0-16.0 [facility] CenterHematocrit2019-08-27 06:17:00* Test Item Value Reference Range Interpretation Comments Hematocrit (test code = 4544-3) 41.8 34.2-44.1 [facility] CenterMean Corpuscular Xwotoh0012-14-97 06:17:00* Test Item Value Reference Range Interpretation Comments Mean Corpuscular Volume (test code = 787-2) 86.9 81-99 [facility] CenterMean Corpuscular Rvmmsiykir1351-10-48 06:17:00* Test Item Value Reference Range Interpretation Comments Mean Corpuscular Hemoglobin (test code = 785-6) 28.5 28-32 [facility] CenterMean Corpuscular Hemoglobin Concent 2019-06-22 06:17:00* Test Item Value Reference Range Interpretation Comments Mean Corpuscular Hemoglobin Concent (test code = 786-4) 32.8 31-35 [facility] CenterRed Cell Distribution Minua0924-20-73 06:17:00* Test Item Value Reference Range Interpretation Comments Red Cell Distribution Width (test code = 91798-1) 18.3 11.7 -14.4 H [facility] CenterPlatelet Gcsse2707-91-39 06:17:00* Test Item Value Reference Range Interpretation Comments Platelet Count (test code = 777-3) 310 140-360 [facility] CenterNeutrophils (%) (Auto)2019-06-22 06:17:00 * Test Item Value Reference Range Interpretation Comments Neutrophils (%) (Auto) (test code = 64431-9) 48.9 38.7-80.0 [facility] CenterLymphocytes (%) (Auto)2019-06-22 06:17:00 * Test Item Value Reference Range Interpretation Comments Lymphocytes (%) (Auto) (test code = 736-9) 35.7 18.0-39.1 [facility] CenterMonocytes (%) (Auto)2019-06-22 06:17:00* Test Item Value Reference Range Interpretation Comments Monocytes (%) (Auto) (test code = 5905-5) 12.1 4.4-11.3 H [facility] CenterEosinophils (%) (Auto)2019-06-22 06:17:00 * Test Item Value Reference Range Interpretation Comments Eosinophils (%) (Auto) (test code = 713-8) 2.7 0.0-6.0 [facility] CenterBasophils (%) (Auto)2019-06-22 06:17:00* Test Item Value Reference Range Interpretation Comments Basophils (%) (Auto) (test code = 706-2) 0.5 0.0-1.0 [facility] CenterIM GRANULOCYTES %2019-06-22 06:17:00* Test Item Value Reference Range Interpretation Comments IM GRANULOCYTES % (test code = IM GRANULOCYTES %) 0.1 0.0- 1.0 [facility] CenterNeutrophils # (Auto)2019-06-22 06:17:00* Test Item Value Reference Range Interpretation Comments Neutrophils # (Auto) (test code = 751-8) 3.9 2.1-6.9 [facility] CenterLymphocytes # (Auto)2019-06-22 06:17:00* Test Item Value Reference Range Interpretation Comments Lymphocytes # (Auto) (test code = 39283-5) 2.9 1.0-3.2 [facility] CenterMonocytes # (Auto)2019-06-22 06:17:00* Test Item Value Reference Range Interpretation Comments Monocytes # (Auto) (test code = 742-7) 1.0 0.2-0.8 H [facility] CenterEosinophils # (Auto)2019-06-22 06:17:00* Test Item Value Reference Range Interpretation Comments Eosinophils # (Auto) (test code = 711-2) 0.2 0.0-0.4 [facility] CenterBasophils # (Auto)2019-06-22 06:17:00* Test Item Value Reference Range Interpretation Comments Basophils # (Auto) (test code = 704-7) 0.0 0.0-0.1 [facility] CenterAbsolute Immature Granulocyte (auto 2019-06-22 06:17:00* Test Item Value Reference Range Interpretation Comments Absolute Immature Granulocyte (auto (anali t code = Absolute Immature Granulocyte (auto) 0.01 0-0.1 [facility] CenterTriglycerides Govmn1380-14-84 06:13:00* Test Item Value Reference Range Interpretation Comments Triglycerides Level (test code = 2571-8) 138 0-149 [facility] CenterCholesterol Vlumu0319-09-19 06:13:00* Test Item Value Reference Range Interpretation Comments Cholesterol Level (test code = 2093-3) 181 0-199 Less than 200 mg/dL Low Vraw232 - 239 mg/dL Borderline Rgye323 m g/dl and greater High Risk [facility] CenterLDL Gmcnardjsky5577-10-96 06:13:00* Test Item Value Reference Range Interpretation Comments LDL Cholesterol (test code = 2089-1) 92 60-130 [facility] CenterHDL Hcntlzfaptu3224-12-34 06:13:00* Test Item Value Reference Range Interpretation Comments HDL Cholesterol (test code = 2085-9) 61 40-60 H [facility] CenterCholesterol/HDL Gudai8313-67-54 06:13:00 * Test Item Value Reference Range Interpretation Comments Cholesterol/HDL Ratio (test code = 9830-1) 3.0 3.0-3.6 [facility] CenterCreatine Kinase VM2139-41-33 05:53:00* Test Item Value Reference Range Interpretation Comments Creatine Kinase MB (test code = 08794-3) 1.90 0-5.0 [facility] CenterTroponin A0190-77-18 05:53:00* Test Item Value Reference Range Interpretation Comments Troponin I (test code = XZN9670) 0.295 0-0.300 [facility] CenterCreatine Pcuckw1758-13-54 05:41:00* Test Item Value Reference Range Interpretation Comments Creatine Kinase (test code = 2157-6) 60 29-168 [facility] CenterCXR 2 VIEW - IFVD5415-95-65 19:59:00 [facility] [address] [place] [address] Patient Name: ANDIE REBOLLEDO MR #: [id number] : 1980 Age/Sex: 38/F Req #: [id number] Adm Physician: Ordered by: WAYNE ARAUZ MD Report #: [id number] Location: [facility] Room/Bed: Procedure: [id number] HOPD/CXR 2 VIEW - HOPD Exam Date: 06/21/19 Exam Chaka e: 1938 REPORT STATUS: Signed EX AMINATION: CXR 2 VIEW - HOPD INDICATION: Chest pain and left arm weakn ess [id number] COMPARISON: None FINDINGS: PA and late ral views TUBES and LINES: None. LUNGS: Lungs are well inflated. Th ere is no evidence of pneumonia or pulmonary edema. PLEURA: No pleural e ffusion or pneumothorax. HEART AND MEDIASTINUM: The cardiomediastinal silh ouette is unremarkable.. BONES AND SOFT TISSUES: No focal osseous lesion s. Soft tissues are unremarkable. UPPER ABDOMEN: No free air under the diaphragm. Cholecystectomy clips in the right upper quadrant. IMPRESSION: No acute thoracic abnormality. Signed by: Dr. Owen Black MD on 06/21/2019 8:00 PM Dictated By: OWEN BLACK MD Electronically Si gned By: OWEN BLACK MD on 06/21/191999 Transcribed By: BRIGHT on 06/21 COPY TO: WAYNE ARAUZ MD [O] Flu Test (in Office ) 2017-12-16 16:53:00* Test Item Value Reference Range Interpretation Comments Flu A (test code = Flu A) Negative N Flu B (test code = Flu B) Negative N [facility]] CMP W/[id number] 15:27:00* Test Item Value Reference Range Interpretation Comments Glucose, Serum (test code = 2345-7) 83 mg/dL 65-99 BUN (test code = 3094-0) 11 mg/dL 6-20 Creatine, Serum (test code = 2160-0) 0.63 mg/dL 0.57-1.00 eGFR If NonAfricn Am (test code = 06241-1) 116 mL/min/1.7 >59 eGFR If Africn Am (test code = 50063-0) 133 mL/min/1.7 >59 BUN/Creatine Ratio (test code = 3097-3) 17 9-23 Sodium, Serum (test code = 2951-2) 138 mmol/L 134-144 Potassium, Serum (test code = 2823-3) 4.4 mmol/L 3.5-5.2 Chloride, Serum (test code = 5-0) 98 mmol/L 96-106 Carbon Dioxide, Total (test code = 2027-9) 23 mmol/L 18-29 Calcium, Serum (test code = 26065-3) 9.8 mg/dL 8.7-10.2 Protein, Total, Serum (test code = 2885-2) 7.0 g/dL 6.0-8.5 Albumin, Serum (test code = 1751-7) 4.4 g/dL 3.5-5.5 Globulin, Total (test code = 22017-4) 2.6 g/dL 1.5-4.5 A/G Ratio (test code = 1759-0) 1.7 1.2-2.2 Bilirubin, Total (test code = 1974-2) 0.9 mg/dL 0.0-1.2 Alkaline Phosphatase, S (test code = 6768-6) 61 {IU/L} 39-117 AST (SGOT); Above High Threshold (test code = 1920-8) 51 {IU/L} 0-40 ALT (SGPT); Above High Threshold (test code = 1742-6) 46 {IU/L} 0-32 [facility]] CBC (INCLUDES DIFF/PLT)2017-11-04 15:27:00* Test Item Value Reference Range Interpretation Comments WBC (test code = 6690-2) 6.5 {x10E3/uL} 3.4-10.8 RBC (test code = 789-8) 4.44 {x10E6/uL} 3.77-5.28 Hemoglobin (test code = 718-7) 12.1 g/dL 11.1-15.9 Hematocrit (test code = 4544-3) 37.3 % 34.0-46.6 MCV (test code = 787-2) 84 fL 79-97 MCH (test code = 785-6) 27.3 pg 26.6-33.0 MCHC (test code = 786-4) 32.4 g/dL 31.5-35.7 RDW (test code = 788-0) 14.8 % 12.3-15.4 Platelets (test code = 777-3) 368 {x10E3/uL} 150-379 Neutrophils (test code = 770-8) 50 % Not Estab. Lymphs (test code = 736-9) 39 % Not Estab. Monocytes (test code = 5905-5) 9 % Not Estab. Eos (test code = 713-8) 1 % Not Estab. Basos (test code = 706-2) 1 % Not Estab. Immature Cells (test code = Immature Cells) See Comment Neutrophils (Absolute) (test code = 751-8) 3.3 {x10E3/uL} 1.4-7.0 Lymphs (Absolute) (test code = 731-0) 2.5 {x10E3/uL} 0.7-3.1 Monocytes(Absolute) (test code = 742-7) 0.6 {x10E3/uL} 0.1-0.9 Eos (Absolute) (test code = 711-2) 0.1 {x10E3/uL} 0.0-0.4 Baso (Absolute) (test code = 704-7) 0.0 {x10E3/uL} 0.0-0.2 Immature Granulocytes (test code = 02967-9) 0 % Not Estab. Immature Grans (Abs) (test code = 64665-6) 0.0 {x10E3/uL} 0.0-0.1 NRBC (test code = 99375-1) See Comment Hematology Comments: (test code = 52049-3) See Comment [facility]] LIPID [id number] 15:27:00* Test Item Value Reference Range Interpretation Comments Cholesterol, Total (test code = 2093-3) 169 mg/dL 100-199 Triglycerides (test code = 2571-8) 83 mg/dL 0-149 HDL Cholesterol (test code = 2085-9) 72 mg/dL >39 VLDL Cholesterol Stiven (test code = 81436-2) 17 mg/dL 5-40 LDL Cholesterol Calc (test code = 50553-6) 80 mg/dL 0-99 Comment: (test code = Comment:) See Comment LDL/HDL Ratio (test code = 48855-3) 1.1 {ratio unit} 0.0-3.2 LDL/HDL Ratio Men Women 1/2 Avg.Risk 1.0 1.5 Avg.Risk 3.6 3.2 2X Avg.Risk 6.2 5.0 3X Avg.Risk 8.0 6.1 [facility]
--- OUTSIDE RECORDS SUMMARY | 2020-09-29 13:44 | XMS REPORT | Clinical Summary ---
Author Author [facility] Organization [facility] Address Unknown Phone Unavailable Care Team Providers Care Policy Checker Name Role Phone Carmen Nascimento MD PCP Allergies Not on File Medications Not on file Active Problems Not on file Social History Date Tobacco Use Types Packs/Day Years Used Never Assessed Sex Assigned at Date Recorded Not on file Last Filed Vital Signs Not on file Plan of Treatment Health Maintenance Due Date Last Done Comments CERVICAL CANCER SCREENING 2002 INFLUENZA VACCINE 05/27/2020 Results Not on fileafter 09/29/2019 Insurance Type Payer Benefit Subscriber ID Effective Phone Address Plan / Dates Group HMO/PPO [facility] [id number] 2016-P THCARE resent CHOICE/CHO ICE + (Home) [place] [address]
--- NOTE | 2020-09-29 13:45 | Diagnostic Imaging Report ---
X-ray left tibia fibula History: Trauma Impression: No acute fracture, subluxation, significant soft tissue swelling, radiopaque foreign body. Signed by: Kvng Barbosa MD on 09/29/2020 1:42 PM
[2020-09-29] MEDS ORDERED: IBUPROFEN400 MG PO (14:02)
[2020-09-29] MEDS ORDERED: CYCLOBENZAPRINE10 MG PO (14:04)
[2020-09-29] MEDS ORDERED: TYLENOL # 31 EA PO (14:09)
[2020-09-29] MEDS ORDERED: ULTRAM 50MG50 MG PO (14:22)
== END 2020-09-29 14:25 | disposition home or self-care (01) ==
LOC: FSED 12:32
DX: S60.212A Contusion of left wrist, initial encounter (principal); S80.12XA Contusion of left lower leg, initial encounter; M54.2 Cervicalgia; R51.9 Headache, unspecified; V47.5XXA Car driver injured in collision with fixed or stationary object in traffic accident, initial encounter; Y92.488 Other paved roadways as the place of occurrence of the external cause; D64.9 Anemia, unspecified; Z98.84 Bariatric surgery status
CPT/HCPCS: 99283